=== PATIENT | female | born 1960 | race Caucasian/White ===

== ENCOUNTER 2021-11-05 16:45 | Emergency (ER) | payer BC ==
[2021-11-05 17:25] LABS: ANION GAP 12.2 mmol/L (5-15)
[2021-11-05 17:53] VITALS: BP 129/59; PULSE 110
== END 2021-11-05 18:02 ==
LOC: KA.ED 16:45
DX: R50.9 Fever, unspecified (principal); D64.9 Anemia, unspecified; Z79.899 Other long term (current) drug therapy
CPT/HCPCS: 36415; 80053; 85025; 99284

== ENCOUNTER 2022-01-04 17:32 | Emergency (ER) | payer BC ==
[2022-01-04] MEDS ORDERED: Sodium Chloride 0.9% 10 ML Syringe FLUSH PRN (17:41)
[2022-01-04 18:07] LABS: ANION GAP 16.1 mmol/L (5-15)
[2022-01-04] MEDS: Sodium Chloride 0.9% 1,000 ML IV ONE (18:25)
[2022-01-04] MEDS: Acetaminophen 500 MG Tab PO ONE (18:43)
[2022-01-04] MEDS: SODIUM CHLORIDE IV SCH (19:02)
[2022-01-04] MEDS: [UNRECOGNIZED DRUG - OTHER] IV SCH (19:02)
[2022-01-04] MEDS: TRANEXAMIC ACID IV SCH (19:02)
[2022-01-04] MEDS: Acetaminophen 500 MG Tab ONE (19:03)
== END 2022-01-04 20:02 ==
LOC: KA.ED 17:32
DX: C53.9 Malignant neoplasm of cervix uteri, unspecified (principal); Z79.899 Other long term (current) drug therapy
CPT/HCPCS: 36415; 80053; 85025; 99285; A9270-GY; J7030